=== PATIENT | male | born 1990 | race Caucasian/White ===

== ENCOUNTER 2018-05-25 05:28 | Day surgery (SDC) | payer OTHER ==
[~2018-05-25] VITALS: Ht 175.3 cm; Wt 89.6 kg
[2018-05-25] VITALS (16 sets, daily range): BP systolic 96–136; BP diastolic 46–68; PULSE 58–68; RESP 12–25; Ht 175.3 cm; Wt 89.6 kg
[2018-05-25] MEDS ORDERED: DEXAMETHASONE 4 MG/ML 5 ML INJ ONE (07:00)
[2018-05-25] MEDS ORDERED: ONDANSETRON 4 MG INJ ONE (07:00)
[2018-05-25] MEDS ORDERED: LIDOCAINE 2% (SDV) 5 ML INJ ONE (07:00)
[2018-05-25] MEDS ORDERED: SEVOFLURANE 15 MIN ONE (07:00)
[2018-05-25] MEDS ORDERED: DEXAMETHASONE 4 MG/ML 1 ML INJ ONE (07:07)
[2018-05-25] MEDS ORDERED: BUPIVACAINE 0.5% (SDV) 30 ML INJ ONE (07:07)
--- NOTE | 2018-05-25 07:14 | PREAC ---
Date/Time of Note Date/Time of Note DATE: 05/25/18 TIME: 07:13 Anesthesia Eval and Record Evaluation Time Pre-Procedure Interview DATE: 05/25/18 TIME: 07:13 Age 27 Sex male NPO: 8 hrs Preoperative diagnosis R 1st toe bunion Planned procedure R 1st toe bunionectomy Past Medical History Past Medical History: None Surgery & Anesthesia Issues No known issue Meds Anticoagulation: No Beta Dionicio within 24 hr: No Reason Beta Dionicio not given: Pt. not on B-Dionicio Meds reviewed: Yes Allergies Allergies Reviewed: Yes Labs/Studies Labs Reviewed: Reviewed by anesthesiologist test: N/A Pre-procedure Exam Last vitals Vital Signs Date Temp Pulse Resp B/P (MAP) Pulse Ox O2 O2 Flow FiO2 Time Delivery Rate 05/25/18 97.7 60 14 116/57 100 Room Air 06:55 (76) Airway: Adequate mouth opening, Adequate thyromental dist Mallampati: Mallampati III Teeth: Normal Lung: Normal Heart: Normal ASA Physical Status ASA physical status: 2 Emergency: None Planned Anesthetic General/MAC: LMA Planned Pain Management Parenteral pain med, Local by surgeon Pre-operative Attestations Prior to commencing anesthesia and surgery, the patient was re-evaluated, there was verification of: *The patient's identity *The results of appropriate recent lab work and preoperative vital signs *The above evaluation not changing prior to induction *Anesthetic plan, risk benefits, alternative and complications discussed with patient/family; questions answered; patient/family understands, accepts and wishes to proceed. ARSLAN ALEJANDRO MD May 25, 2018 07:13
[2018-05-25] MEDS ORDERED: FENTAnyl 50 MCG/ML VIAL ONE (07:16)
[2018-05-25] MEDS ORDERED: PROPOFOL 20 ML ONE (07:16)
[2018-05-25] MEDS ORDERED: MIDAZOLAM 1 MG/ML 2 ML INJ ONE (07:16)
[2018-05-25] MEDS ORDERED: METOCLOPRAMIDE 10 MG INJ ONE (07:18)
[2018-05-25] MEDS ORDERED: LIDOCAINE 1% (MPF) 30 ML INJ ONE (07:28)
[2018-05-25] MEDS ORDERED: FENTAnyl 50 MCG/ML VIAL IV PRN ×2 (07:30)
[2018-05-25] MEDS ORDERED: MEPERIDINE 25 MG INJ IV PRN (07:30)
[2018-05-25] MEDS ORDERED: DIPHENHYDRAMINE 50 MG INJ IV PRN (07:30)
[2018-05-25] MEDS ORDERED: ONDANSETRON 4 MG INJ IV PRN (07:30)
[2018-05-25] MEDS ORDERED: HYDROmorphONE 1 MG/5 ML IV SYRINGE IV PRN ×3 (07:30)
[2018-05-25] MEDS ORDERED: CEFAZOLIN 1 GM INJ ONE (07:32)
--- NOTE | 2018-05-25 08:35 | HPN ---
Date/Time of Note Date/Time of Note DATE: 05/25/18 TIME: 08:34 Interval H&P Admission Note Pt. seen H&P reviewed: No system changes BENITEZ FERRIS DPM May 25, 2018 08:35
--- NOTE | 2018-05-25 08:40 | SIPON ---
Date/Time of Note Date/Time of Note DATE: 05/25/18 TIME: 08:37 Operative Report Preoperative Diagnosis bunion Postoperative Diagnosis same Operation/Procedure Performed nicho bunionectomy rt foot Surgeon see signature line research program assistant none Anesthesia: general Estimated blood loss: none Transfusion Required none Specimen none Grafts/Implants none Complications none BENITEZ FERRIS DPM May 25, 2018 08:40
--- NOTE | 2018-05-25 08:50 | HPN ---
Date/Time of Note Date/Time of Note DATE: 05/25/18 TIME: 08:50 Interval H&P Admission Note Pt. seen H&P reviewed: No system changes BENITEZ FERRIS DPM May 25, 2018 08:50
--- NOTE | 2018-05-25 09:28 | HPN ---
Date/Time of Note Date/Time of Note DATE: 05/25/18 TIME: 09:27 Interval H&P Admission Note Pt. seen H&P reviewed: No system changes BENITEZ FERRIS DPM May 25, 2018 09:28
--- NOTE | 2018-05-25 11:03 | PAC ---
Date/Time of Note Date/Time of Note DATE: 05/25/18 TIME: 11:03 Post-Anesthesia Notes Post-Anesthesia Note Last documented vital signs Vital Signs Date Temp Pulse Resp B/P (MAP) Pulse Ox O2 O2 Flow FiO2 Time Delivery Rate 05/25/18 60 23 136/65 99 Room Air 09:49 (88) 05/25/18 10.0 08:49 05/25/18 98.0 08:38 Activity: WNL Respiratory function: WNL Cardiovascular function: WNL Mental status: Baseline Pain reasonably controlled: Yes Hydration appropriate: Yes Nausea/Vomiting absent: Yes ARSLAN ALEJANDRO MD May 25, 2018 11:03
--- NOTE | 2018-05-25 16:13 | OPR ---
DATE OF OPERATION: 05/25/2018 PREOPERATIVE DIAGNOSIS: Bunion deformity, right foot. POSTOPERATIVE DIAGNOSIS: Bunion deformity, right foot. NAME OF OPERATION: Dajuan bunionectomy of right foot with the cannulated screw fixation. PROCEDURE: The patient was brought to the OR and placed in a supine position in the operating room t able. Anesthesia was achieved using general anesthesia and a local for 420 mL of lidocaine 1% plain. Next, the ankle was wrapped several times with Webril and tourniquet was placed over the Webril. T hen, the foot was prepped and draped in the usual sterile fashion and the tourniquet was inflated to 250 mmHg. Attention was then directed over the first MPJ. A 5 cm linear incision was made over the first MPJ. The incision was then deepened in the same plane using sharp and blunt dissection. Vital structures were retracted from the surgical incision site. Next, two semielliptical incisions were made over t he capsule dorsally. Next, the head of the first metatarsal bone was released medially and dorsally. Next, the prominent medial bone was resected using a bone saw. Attention was then directed to the first interspace and adductor tendon was released. Fibular sesamoid was released from surrounding so ft tissue. Next, attention was directed back to the neck of the first metatarsal bone. Using K wire as an axis guide, a V osteotomy was made at the neck of the first metatarsal bone. The capsule frag ment was translocated and then fixated with cannulated screw. The prominent bone medially was then r esected with saw and then rasped smooth. The surgical site was then flushed with copious amount of n ormal saline and capsular closure was obtained using 3-0 Vicryl, subcutaneous closure using 4-0 Vicry l, and skin closure using grazyna. Postop injection of 5 mL of 0.5% Marcaine plain and 1 mL of dexam ethasone sodium phosphate was infiltrated to the surgical site. The surgical site then was covered w ith Adaptic, 4 x 4s, and Kerlix in a compressive fashion. Next, the tourniquet was deflated and imme diate capillary refill was observed to all digits of the right foot. The patient tolerated anesthesi a and procedure well and left the OR for recovery room with vital signs stable and neurovascular stat us intact. Dictated By: BENITEZ BROWN/CHOCO Conf#: [id number] [facility]#: [id number]
== END 2018-05-25 10:20 | disposition home or self-care (01) ==
LOC: SDS 05:28
PROVIDERS: ATTEND Podiatrist
DX: M21.611 Bunion of right foot (principal)
CPT/HCPCS: 28296; J0690; J1100; J2175; J2250; J2405; J2765; J3010; 88304; 88311